=== PATIENT | male | born 1965 | race Caucasian/White ===

== ENCOUNTER 2017-04-04 06:19 | Day surgery (SDC) | payer OTHER ==
[2017-03-31 11:37] VITALS: BMI 34.9
[~2017-04-04 06:19] MED LIST: ALPRAZolam 0.25 MG TAB PO PRN; ALPRAZolam 0.5 MG TAB PO PRN; ASPIRIN 325 MG TAB PO STA; ATORVASTATIN 80 MG TAB PO STA; NITROGLYCERIN SL TABS 0.4 MG TAB SUBLINGUAL PRN; SODIUM CHLORIDE 0.9% 1,000 ML in EMPTY BAG 1 BAG IV ONE
[2017-04-04 07:15] VITALS: RESP 18
[2017-04-04 07:17] LABS: Glucose,Whole Blood 182 mg/dL (75-99)
[2017-04-04 07:27] LABS: Basophils % (A) 1 %; CH 30.6; CHCM 36.4; Eosinophils # (A) 0.1 k/uL (0-0.7); Eosinophils % (A) 2 %; HCT 43.2 % (39.0-53.0); HGB 15.3 gm/dL (13.0-17.5); Luc % (Auto) 2; Lymphocytes # (A) 1.5 k/uL (1.0-4.8); Lymphocytes % (A) 26 %; MCH 29.9 pg (25.0-35.0); MCHC 35.4 g/dL (31.0-37.0); MCV 84.4 fL (80.0-100.0); Mean Platelet Volume 6.4; Monocytes # (A) 0.3 k/uL (0-1.0); Monocytes % (A) 6 %; Neutrophils # (A) 3.8 k/uL (1.3-7.7); Neutrophils % (A) 65 %; RBC 5.11 m/uL (4.30-5.90); RDW 13.2 % (11.5-15.5); WBC 5.9 k/uL (3.8-10.6)
[2017-04-04] MEDS ORDERED: fentaNYL (PF) 50 MCG/ML 2 ML AMP IV ONE (07:35)
[2017-04-04] MEDS ORDERED: LIDOCAINE 2% INJ 20 MG/ML SQ ONE ×2 (07:36→07:38)
[2017-04-04] MEDS ORDERED: diphenhydrAMINE 50 MG/ML 1 ML VIAL IVP ONE (07:37)
[2017-04-04] MEDS ORDERED: MIDAZOLAM 2 MG/2 ML VIAL IVP ONE (07:40)
[2017-04-04 07:52] LABS: Anion Gap 13 mmol/L; Blood Urea Nitrogen 21 mg/dL (9-20); Calcium 9.3 mg/dL (8.4-10.2); Carbon Dioxide 25 mmol/L (22-30); Chloride 102 mmol/L (98-107); Glucose 184 mg/dL (74-99); Non-African American GFR(MDRD) >60 (>60 ml/min/1.73 sqM); Potassium 4.3 mmol/L (3.5-5.1); Sodium 140 mmol/L (137-145)
[2017-04-04] MEDS ORDERED: BIVALIRUDIN BOLUS 250 MG/50 ML IV ONE (07:58)
[2017-04-04] MEDS ORDERED: BIVALIRUDIN 250 MG in SODIUM CHLORIDE 0.9% 50 ML IV ONE (07:59)
[2017-04-04] MEDS ORDERED: CLOPIDOGREL 75 MG TAB PO ONE (08:03)
[2017-04-04] MEDS ORDERED: NITROGLYCERIN 1000MCG/10ML SYRINGE INTRACORON ONE (08:07)
[2017-04-04] MEDS ORDERED: IOHEXOL 350 MG/ML 100 ML BOTTLE INJ ONE (08:40)
[2017-04-04] MEDS ORDERED: SODIUM CHLORIDE 0.9% 1,000 ML IV SCH (08:45)
[2017-04-04] MEDS ORDERED: NITROGLYCERIN SL TABS 0.4 MG TAB SUBLINGUAL PRN (08:45)
[2017-04-04] MEDS ORDERED: RX INFO: IV CONTRAST WAS GIVEN 1 EACH MISC MISCELLANE PRN (08:45)
[2017-04-04] MEDS ORDERED: MAG HYDROX/AL HYDROX/SIMETH 30 ML CUP PO PRN (08:45)
[2017-04-04] MEDS ORDERED: ATROPINE SULFATE 0.1 MG/ML 10ML SYRINGE IV PRN (08:45)
[2017-04-04] MEDS ORDERED: ZOLPIDEM 5 MG TAB PO PRN (08:45)
--- NOTE | 2017-04-04 10:40 | PTCA ---
DATE OF SERVICE: Angioplasty procedure of the distal left main and the ramus intermedius. Mr. Raman is a 51-year-old male with known history of coronary artery disease, who presented with symptoms of angina pectoris and abnormal myocardial perfusion imaging, underwent cardiac catheterization, was found to have critical stenosis involving the distal left main and the ramus intermedius. In view of that, recommendation made regarding angioplasty and stenting. The procedure as well as risks and complications were discussed with the patient who was in full understanding and agreement. PROCEDURE: An FR4 guiding catheter introduced into the system, after cannulating the left main, 0.014 balanced medium-weight J-wire was advanced across the lesion, positioned distally, then a 2.5 x 15 mm Trek balloon was advanced and 2 inflations at maximum of 10 atmospheres were done. Following that, the balloon was removed and a 2.5 x 23 mm Xience Alpine stent was deployed into the ramus intermedius, post-dilated at 16 atmospheres. Following that, the balloon was removed and a 3.5 x 12 mm Xience Alpine stent was deployed in the distal left main, post-dilated at 14 atmospheres. Following that, the balloon was removed and a 3.75 x 12 mm NC trek balloon was advanced and inflation in the left main stent was performed at 14 atmospheres. After the last inflation, after appropriate wait, the balloon and the guidewire were withdrawn back into the guiding catheter. Images were obtained and repeated. Those images reveal stable successful stenting. At that point, the guiding catheter, the balloon and guidewire were removed. The sheath was removed. Hemostasis was obtained with deployment of an Angio-Seal. There was no immediate complication. Patient is returned to his room in stable condition. Of note, the patient received Angiomax per protocol as well as oral loading dose of Clopidogrel. He had chest discomfort and EKG changes with the inflation, that resolved at the end of the procedure. Duration of the procedure 61 minutes now. RESULTS: 1. Successful stenting of the distal left main with reduction in stenosis from 99% to less than 5%, 2. Successful stenting of the ramus intermedius with reduction in stenosis from 90% to 0%. RECOMMENDATION: Patient will be continued on aspirin, Plavix, beta marleny, JULIO inhibitor, statin. The importance of dual antiplatelet treatment was discussed with the patient and his family physician who are in full understanding and agreement.
--- NOTE | 2017-04-04 10:43 | LTR ---
April 04, 2017 RE: Hoang Raman Dear Dr. Chairez; I had the pleasure to perform cardiac catheterization, coronary angioplasty and stenting on Mr. Raman at [facility] on April 04, 2017 and a full copy of the procedure note will be forwarded to you. In brief, he was found to have critical stenosis involving the distal left main and the ramus intermedius with occlusion of his saphenous vein graft and patent MART to the LAD. He underwent successful stenting of the distal left main and the proximal ramus intermedius. I am hopeful that this procedure will stabilize his status and thank you again for allowing me to participate in this patient's care. Please feel free to call for any questions. Sincerely yours, VAIBHAV KOENIG MD
--- NOTE | 2017-04-04 10:56 | CC ---
DATE OF SERVICE: Mr. Raman is a 51-year-old male who underwent coronary bypass grafting in 1971. Presents recently with symptoms of chest discomfort, underwent cardiac catheterization and found to have reversible inferolateral and inferoapical wall defect with a drop in the ejection fraction. In view of that, recommendation was made regarding cardiac catheterization. The procedure as well as the risks and the complications were discussed with the patient who is in full understanding and agreement. PROCEDURE: Patient was brought to the woods laborer in fasting semi-sedated state after receiving fentanyl and Benadryl and achieving moderate conscious sedated state. Using Xylocaine anesthesia and Seldinger technique, a 6 [place] sheath was introduced in the right femoral artery. Selective right and left coronary angiography was performed using 6 [place] 4 bend right and left Patria catheter. Multiple view of the coronary arteries including hemiaxial views were obtained. The right Patria catheter was used to cannulate the saphenous vein graft to the obtuse marginal branch as well as MART to the LAD. Images of the grafts were obtained. Following that, a 6 [place] tight pigtail catheter was introduced in the left ventricle and a 30-degree GRAHAM view of the left ventricle was obtained and [place] view of the ascending aorta was obtained. Following that, catheter was removed. Images were reviewed. FINDINGS: LEFT MAIN: This is a large-size vessel bifurcating into the left circumflex, left anterior descending artery. Left main coronary artery has a 99% stenosis distally. LEFT ANTERIOR DESCENDING ARTERY: This vessel is totally occluded proximally with no significant antegrade flow. RAMUS INTERMEDIUS: This is a large-size vessel reaching to the apical lateral wall. The ramus intermedius has a 90% stenosis in the proximal segment. LEFT CIRCUMFLEX: This is a nondominant vessel moderate in caliber giving rise to small to moderately sized obtuse marginal branch that has diffuse intimal disease in the proximal and mid segment of the obtuse marginal. RIGHT CORONARY ARTERY: This vessel is totally occluded in mid segment after the take off of the acute marginal branch with no significant antegrade flow. COLLATERALS: There is collaterals from the left coronary system toward the right PDA. SAPHENOUS VEIN GRAFT TO THE OBTUSE MARGINAL BRANCH: This graft was totally occluded proximally. MART TO THE LAD: The distal anastomotic site is patent. The flow into the LAD is brisk. There is diffuse intimal disease in the LAD. LEFT VENTRICULOGRAM: Left ventriculogram was performed in 30-degree GRAHAM view and revealed mid anterior and anteroapical wall hypokinesis. Ejection fraction of 40% to 45%. HEMODYNAMICS: There was no gradient across the aortic valve. The left ventricular end-diastolic was 16 mmHg. AORTOGRAM: The aortogram was performed in the [place] view and revealed no visualization of saphenous vein graft with a tricuspid aortic valve and no evidence of aortic regurgitation. CONCLUSION: 1. Severe stenosis in the distal left main. 2. Chronically occluded proximal left anterior descending. 3. Significant stenosis in the ramus intermedius. 4. Chronically occluded mid right coronary artery. 5. Patent left internal mammary artery to left anterior descending artery with diffuse disease in the left anterior descending. 6. Totally occluded saphenous vein graft. 7. Moderately impaired left ventricular systolic function. RECOMMENDATIONS: In view of finding anatomy, I recommend proceeding with angioplasty and stenting of the left main and ramus intermedius. The procedure as well as risks and complications were discussed with the patient who is in full understanding and agreement.
[2017-04-04] MEDS: LOSARTAN 50 MG TAB PO SCH (11:55)
[2017-04-04] MEDS: ISOSORBIDE MONONITRATE ER 30 MG TAB.ER.24H PO SCH (11:55)
[2017-04-04] MEDS: METOPROLOL SUCCINATE (ER) 50 MG TAB.ER.24H PO SCH ×2 (11:56→19:57)
[2017-04-04 12:06] LABS: Glucose,Whole Blood 135 mg/dL (75-99)
[2017-04-04 16:53] LABS: Glucose,Whole Blood 234 mg/dL (75-99)
[2017-04-04] MEDS ORDERED: EZETIMIBE 10 MG TAB PO SCH (21:00)
[2017-04-04] MEDS ORDERED: INSULIN GLARGINE 100 UNIT/ML 10 ML VIAL SQ SCH (21:00)
[2017-04-04] MEDS ORDERED: buPROPion SR 150 MG TABLET.ER PO SCH (21:00)
[2017-04-04 21:02] LABS: Glucose,Whole Blood 209 mg/dL (75-99)
[2017-04-05 05:59] LABS: Glucose,Whole Blood 190 mg/dL (75-99)
[2017-04-05 06:50] LABS: Anion Gap 10 mmol/L; Blood Urea Nitrogen 17 mg/dL (9-20); Calcium 9.2 mg/dL (8.4-10.2); Carbon Dioxide 25 mmol/L (22-30); Chloride 102 mmol/L (98-107); Glucose 176 mg/dL (74-99); Non-African American GFR(MDRD) >60 (>60 ml/min/1.73 sqM); Potassium 4.4 mmol/L (3.5-5.1); Sodium 137 mmol/L (137-145)
[2017-04-05] MEDS ORDERED: ASPIRIN 81 MG CHEW PO SCH (09:00)
[2017-04-05] MEDS ORDERED: CLOPIDOGREL 75 MG TAB PO SCH (09:00)
--- NOTE | 2017-04-05 09:51 | PN ---
Mr. Raman is a 51-year-old male with known history of coronary artery disease, status post coronary artery bypass grafting, history of hypertension, hyperlipidemia, diabetes mellitus who presented with symptoms of angina pectoris, underwent cardiac catheterization was found to have significant stenosis involving the distal left main and the proximal ramus intermedius. Underwent stenting of those vessels. He is doing well this morning. He is denying any chest pain. His breathing has been stable. He denies any dizziness. He has been ambulating in the room without much difficulty. He continues to be at this time on aspirin once a day, Vytorin 10/40 mg daily, metoprolol succinate 50 mg twice a day, losartan 100 mg daily, isosorbide mononitrate 30 mg daily, Plavix 75 mg daily, bupropion and insulin. PHYSICAL EXAMINATION: Blood pressure 129/73 with the heart rate 70. LUNGS: Clear. HEART: Regular rate and rhythm. S1, S2, no S3, no rub. ABDOMEN: Soft, obese, nontender. RIGHT GROIN: No hematoma. LAB DATA: BUN and creatinine 17 and 1.1. Potassium 4.4. His EKG revealed no acute changes. IMPRESSION: 1. Status post stenting of the distal left main and the ramus intermedius. 2. Status post coronary artery bypass grafting with occluded saphenous vein grafts. 3. Hypertension. 4. Hyperlipidemia. 5. Diabetes mellitus. RECOMMENDATION: The patient will be discharged home today and followed as an outpatient.
[2017-04-05] MEDS: ISOSORBIDE MONONITRATE ER 30 MG TAB.ER.24H PO SCH (10:10)
[2017-04-05] MEDS: METOPROLOL SUCCINATE (ER) 50 MG TAB.ER.24H PO SCH (10:10)
[2017-04-05] MEDS: LOSARTAN 50 MG TAB PO SCH (10:10)
[2017-04-05 11:59] VITALS: BP 142/86; PULSE 67; TEMP 97
[2017-04-05] MEDS ORDERED: ATORVASTATIN 20 MG TAB PO SCH (21:00)
== END 2017-04-05 12:02 | disposition home or self-care (01) ==
LOC: CATHCVL 06:19 → 6SEL 08:35 → CATHCVL 04-05 12:02
PROVIDERS: ATTEND Internal Medicine Interventional Cardiology
DX: I25.119 Atherosclerotic heart disease of native coronary artery with unspecified angina pectoris (principal); I25.719 Atherosclerosis of autologous vein coronary artery bypass graft(s) with unspecified angina pectoris; I25.82 Chronic total occlusion of coronary artery; I25.5 Ischemic cardiomyopathy; E11.9 Type 2 diabetes mellitus without complications; I10 Essential (primary) hypertension; E78.2 Mixed hyperlipidemia; Z79.84 Long term (current) use of oral hypoglycemic drugs; Z79.82 Long term (current) use of aspirin; Z79.4 Long term (current) use of insulin; Z79.899 Other long term (current) drug therapy; Z82.49 Family history of ischemic heart disease and other diseases of the circulatory system
CPT/HCPCS: 93459; 80048 ×2; 85025; 99152; 99153 ×3; C9600 ×2; C1769 ×2; C1760; C1887; C1725 ×2; C1894; C1874; J2001; J2250; J1200; Q9967; S0106; J3010; J0583